=== PATIENT | male | born 2000 | race Caucasian/White ===

== ENCOUNTER 2023-03-12 20:09 | Emergency (ER) | payer OTHER ==
[~2023-03-12] VITALS: Ht 180.3 cm; Wt 82.5 kg
[2023-03-12] MEDS ORDERED: LIDOCAINE 5% (LIDODERM) PATCH TD ONE (20:35)
[2023-03-12] MEDS ORDERED: CYCLOBENZAPRINE 5MG TABLET PO ONE (20:35)
[2023-03-12] MEDS ORDERED: KETOROLAC 30 MG/ML 1ML VIAL IM ONE (20:35)
[2023-03-12] MEDS ORDERED: LIDO5DIS41 TD (20:38)
[2023-03-12] MEDS ORDERED: CYCL-707 PO (20:38)
[2023-03-12 20:55] VITALS: BP 142/80
== END 2023-03-12 21:26 | disposition home or self-care (01) ==
LOC: M ED 20:09
DX: M54.50 Low back pain, unspecified (principal); M62.830 Muscle spasm of back; J34.2 Deviated nasal septum
CPT/HCPCS: 96372; 99283; J1885